=== PATIENT | male | born 1945 | race Caucasian/White ===

== ENCOUNTER 2019-04-06 07:55 | Day surgery (SDC) | payer OTHER, MEDICARE ==
[2019-03-22 10:58] LABS: HEMATOCRIT 40.9 % (37.9-51.0); HEMOGLOBIN 13.9 g/dL (13.5-17.0); MEAN CORPUSCULAR VOLUME 88 fl (80-97); PLATELET COUNT 185 10^3/uL (150-450); RED BLOOD COUNT 4.64 10^6/uL (4.35-5.55); RED CELL DISTRIBUTION WIDTH 14.4 % (11.5-14.0); WHITE BLOOD COUNT 6.3 10^3/uL (4.0-10.5)
--- NOTE | 2019-03-22 12:35 | RADIOLOGY REPORT (SQ) ---
EXAM DESCRIPTION: CHEST PA/LATERAL COMPLETED DATE/TIME: 03/22/2019 10:13 am REASON FOR STUDY: PRE-OP K40.90 UNIL INGUINAL HERNIA, W/O OBST OR GANGR, NOT SPCF COMPARISON: None. NUMBER OF VIEWS: Two view. TECHNIQUE: Frontal and lateral radiographic views of the chest acquired. LIMITATIONS: None. FINDINGS: LUNGS AND PLEURA: No opacities, masses or pneumothorax. No pleural effusion. Attenuated bl ood vessels and flattened papa-diaphragms. MEDIASTINUM AND HILAR STRUCTURES: No masses. No contour abnormalities. HEART AND VASCULAR STRUCTURES: Heart normal in size and contour. No evidence for failure. BONES: No acute findings. HARDWARE: None in the chest. OTHER: No other significant finding. IMPRESSION: Severe COPD. NO ACUTE RADIOGRAPHIC FINDING IN THE CHEST. TECHNICAL DOCUMENTATION: JOB ID: [id number] [employer]- All Rights Reserved Reading location - IP/workstation name: [email or web address]
--- NOTE | 2019-03-22 19:24 | EKG REPORT ---
SEVERITY:- OTHERWISE NORMAL ECG - SINUS RHYTHM LOW VOLTAGE IN FRONTAL LEADS : Confirmed by: Nayana Dawson MD 22-Mar-2019 19:24:08
[~2019-04-06 07:55] MED LIST: ACETAMINOPHEN 325 MG TABLET PO PRN; BUPIVACAINE HCL 0.25% /EPINEPHRINE INJ/PF 30 ML SDV ONE; CEFAZOLIN 1 GM/D5W RTU 1 GM/50 ML RTUPB IV PRN; CLINDAMYCIN 600 MG/D5W RTU 600 MG/50 ML RTUPB IV ONE; CLINDAMYCIN 600 MG/D5W RTU 600 MG/50 ML RTUPB IV PRN; LACTATED RINGERS 1000 ML IV PRN; LIDOCAINE 0.5% INJ-PF (5 MG/ML) 50 ML SDV SUBCUT PRN
[2019-04-06] MEDS ORDERED: ALBUTEROL SULFATE 0.083% NEB 2.5 MG/3 ML AMPUL NEB ONE (08:48)
[2019-04-06] MEDS ORDERED: METOPROLOL SUCCINATE 25 MG TAB.SR.24H PO ONE (08:48)
[2019-04-06] MEDS ORDERED: FENTANYL CITRATE INJ/PF 100 MCG/2 ML AMPUL ONE (10:27)
[2019-04-06] MEDS ORDERED: LIDOCAINE 2% INJ-PF (100 MG/5 ML) SYRINGE ONE (10:27)
[2019-04-06] MEDS ORDERED: MIDAZOLAM 2 MG/2 ML INJ ONE (10:27)
[2019-04-06] MEDS ORDERED: KETAMINE HCL INJ 500 MG/10 ML VIAL ONE (10:27)
[2019-04-06] MEDS ORDERED: ONDANSETRON HCL INJ/PF 4 MG/2 ML SDV ONE (10:27)
[2019-04-06] MEDS ORDERED: PROPOFOL INJ 200 MG/20 ML VIAL IV ONE (10:28)
[2019-04-06] MEDS ORDERED: DIPHENHYDRAMINE HCL 50 MG/ML VIAL IV PRN (11:10)
[2019-04-06] MEDS ORDERED: MEPERIDINE HCL/PF INJ 25 MG/1 ML DISP.SYRIN IV PRN (11:10)
[2019-04-06] MEDS ORDERED: FENTANYL CITRATE INJ/PF 100 MCG/2 ML AMPUL IV PRN ×3 (11:10)
[2019-04-06] MEDS ORDERED: CEFAZOLIN INJ 1 GM VIAL ONE (11:32)
--- NOTE | 2019-04-06 11:55 | Operative Report ---
Nonrecallable Operative Report DATE OF SURGERY: 04/06/19 PREOPERATIVE DIAGNOSIS: left inguinal hernia POSTOPERATIVE DIAGNOSIS: left inguinal hernia OPERATION: left inguinal herniorrophy SURGEON: GRACE BECK ANESTHESIA: LMAC COMPLICATIONS: none ESTIMATED BLOOD LOSS: 10cc INTRAOPERATIVE FINDINGS: large direct defect, ruy repair iwth mesh PROCEDURE: see dictation
--- NOTE | 2019-04-06 11:56 | Discharge Summary ---
Discharge Summary (SDC) - Discharge Final Diagnosis: left inguinal hernia Date of Surgery: 04/06/19 Discharge Date: 04/06/19 Condition: Good Treatment or Instructions: no lifting more than 10lbs for 4 wks. Referrals: [facility] [[facility]] - Discharge Diet: As Tolerated Discharge Activity: Activity As Tolerated, No Lifting Over 10 Pounds, No Lifting/Push/Pulling Report the Following to Your Physician Immediately: Shortness of Breath, Nausea, Vomiting, Increase in Pain, Unusual Bleeding - f/u with me in 2-3 wks.
[2019-04-06 14:06] VITALS: BP 147/95
--- NOTE | 2019-04-08 11:00 | OPERATIVE REPORT E ---
Operative Report NAME: MASON UGARTE JR : 1945 AGE: 73Y DATE OF SURGERY: 04/06/2019 ROOM: PREOPERATIVE DIAGNOSIS: LEFT INGUINAL HERNIA. POSTOPERATIVE DIAGNOSIS: LEFT INGUINAL HERNIA. OPERATION: Left inguinal herniorrhaphy. SURGEON: GRACE BECK M.D. PROCEDURE: Patient brought to the operating room in awake, alert and stable condition and placed on the operating table in supine position and given IV sedation throughout the procedure. The left groin was prepped and draped in the usual sterile fashion. After appropriate timeout, the left groin crease was anesthetized with 1% lidocaine with epinephrine. A curvilinear incision was made in the left groin crease and dissection carried down through subcutaneous tissue with Bovie cautery. Tamara's fascia was opened with Bovie cautery. There was some scarring from previous midline incision but we identified the external oblique which was then opened in line with its fibers. Once we did that, we identified the cord structures fairly rapidly and then spun that with an umbilical tape. There was no indirect inguinal hernia sac noted on the cord structures. However, there was a large direct inguinal hernia sac with a very weak floor. It was mobilized from the pubic symphysis and mobilized proximally and then dropped back into the abdominal cavity. A piece of polypropylene mesh was then utilized for the repair in a fashion. Using Ethibond sutures, the lateral aspect of the mesh was attached to Alexandre's ligament and this was continued to the femoral vein where the femoral vein, mesh, and Alexandre's ligament were all captured with the transition stitch, and then we continued up laterally to Poupart's ligaments. The mesh was then slit to allow for the cord structures and the medial aspect of the mesh was connected to the conjoint tendon with interrupted 0-Ethibond sutures. This created the hernia repair. We were careful not to injure the ilioinguinal or genitofemoral nerve. These were both identified and preserved. The mesh was then dusted with Ancef powder and the external oblique was closed over it with a running 2-0 Vicryl suture. Subcutaneous tissue was closed with interrupted 3-0 Vicryl suture and the skin was closed with intracuticular 4-0 Biosyn and Steri-Strips completed the procedure. The patient was awoken in the operating room and transferred to recovery in stable condition. ESTIMATED BLOOD LOSS: Less than 10 mL. SPONGE AND NEEDLE COUNT: Correct x2. DICTATING PHYSICIAN: GRACE BECK M.D. [id number] PHY#: [id number] ID: [id number] JOB#: [id number] ACCT: [id number] cc:GRACE BECK M.D. >
== END 2019-04-06 14:05 | disposition home or self-care (01) ==
LOC: OROUT 07:55
PROVIDERS: ATTEND Surgery
DX: K40.90 Unilateral inguinal hernia, without obstruction or gangrene, not specified as recurrent (principal); I10 Essential (primary) hypertension; J44.9 Chronic obstructive pulmonary disease, unspecified; E78.00 Pure hypercholesterolemia, unspecified; E55.9 Vitamin D deficiency, unspecified; N40.0 Benign prostatic hyperplasia without lower urinary tract symptoms; Z88.0 Allergy status to penicillin; Z01.818 Encounter for other preprocedural examination; F17.210 Nicotine dependence, cigarettes, uncomplicated
CPT/HCPCS: 93005; 36415; 85027; 71046; 93010; 49505; C1781; J2250; J3490 ×2; J0690; J3010; J2001; J2405; J2704; 830

== ENCOUNTER → 2019-10-26 | Outpatient (CLI) | payer OTHER ==
--- NOTE | 2019-11-08 10:14 | RADIOLOGY REPORT (SQ) ---
EXAM DESCRIPTION: CT CHEST WITH COMPLETED DATE/TIME: 10/26/2019 10:01 am REASON FOR STUDY: LUNG NODULE (R93.89) R93.89 ABNORMAL FINDINGS ON DX IMAGING OF OTH BODY STRUCTURE COMPARISON: None. TECHNIQUE: CT scan of the chest performed using helical scanning technique with dynamic intravenous contrast injection. Images reviewed with lung, soft tissue and bone windows. Reconstructed coronal and sagittal MPR and MIP images reviewed. All images stored on PACS. All CT scanners at this facility use dose modulation, iterative reconstruction, and/or weight based d osing when appropriate to reduce radiation dose to as low as reasonably achievable (ALARA). [facility]: Dose Right [facility]: CareDose [facility]: Dose Right [facility]: Teradose 4D [facility]: VideoLens CONTRAST TYPE AND DOSE: Contrast/concentration: Isovue 350.00 mg/ml; Total Contrast Delivered: 80.0 ml; Total Saline Delivered: 55.0 ml RENAL FUNCTION: Creatinine 1.1 milligrams/deciliter RADIATION DOSE: CT Rad equipment meets quality standard of care and radiation dose reduction techniq ues were employed. CTDIvol: 3.0 mGy. DLP: 127 mGy-cm. . LIMITATIONS: None. FINDINGS: LUNGS AND PLEURA: There is advanced upper lobe predominant centrilobular emphysema associa katarina with mild bronchial wall thickening and bronchiectasis. The saber sheath configuration of the tr achea is consistent with COPD. The curvilinear opacities in the lower lobes that extend to the pleur al surface could represent parenchymal bands. There is no consolidation, ground-glass opacification, pleural effusion, pleural thickening, or greater than 6 mm pulmonary nodule or mass. HILAR AND MEDIASTINAL STRUCTURES: No adenopathy or mass. HEART AND VASCULAR STRUCTURES: There is a standard 3 vessel arch. There are also eccentric calcified and noncalcified atheromatous plaques throughout the aortic arch and descending thoracic aorta ; ther e is no thoracic aortic aneurysm or dissection. The abdominal aorta is aneurysmal with concentric no ncalcified atheromatous plaques and it measures 4.5 x 4.2 cm. HARDWARE: None in the chest. UPPER ABDOMEN: The left kidney is atrophic. There is an indeterminate 2.3 x 2.1 cm exophytic lesion that arises from the lateral cortex of the left kidney. THYROID AND OTHER SOFT TISSUES: The thyroid gland is enlarged and heterogeneous. There is no adenopa thy BONES: There are age-indeterminate compression deformities of the T4 and T11 vertebral bodies associa katarina with less than 25% loss of the vertebral body heights ; there is no retropulsion. OTHER: No other finding. IMPRESSION: 1. Advanced upper lobe predominant centrilobular emphysema without a superimposed acute cardiopulmonary process. 2. Enlarged and heterogeneous thyroid gland consistent with goiter. 3. Age-indeterminate compression deformities of the T4 and T11 vertebral bodies associated with the less than 25% loss of the vertebral body heights. 4. Asymmetric atrophy of the left kidney. COMMENT: The report could be addended once outside studies are available for comparison. TECHNICAL DOCUMENTATION: JOB ID: [id number] Quality ID # [id number]: Final reports with documentation of one or more dose reduction techniques (e.g., Au tomated exposure control, adjustment of the mA and/or kV according to patient size, use of iterative reconstruction technique) 2010 [employer]- All Rights Reserved Reading location - IP/workstation name: [email or web address]
== END ==
LOC: RAD 09:30
PROVIDERS: ATTEND Internal Medicine Hematology & Oncology
DX: R91.1 Solitary pulmonary nodule (principal); J43.2 Centrilobular emphysema; E04.9 Nontoxic goiter, unspecified
CPT/HCPCS: 71260; 82565

== ENCOUNTER 2020-06-12 06:40 | Day surgery (SDC) | payer OTHER ==
[2020-06-12] MEDS ORDERED: PROPOFOL INJ 200 MG/20 ML VIAL IV ONE (07:34)
--- NOTE | 2020-06-12 08:35 | Operative Report ---
Operative Report DATE OF SURGERY: 06/12/20 Operative Report: The risk, benefits and alternatives of the procedure including the risk of bleeding, perforation requiring surgery have been explained to the patient in detail and informed consent has been obtained. Patient is placed in a left, lateral decubital position. Timeout was called. Propofol medication is administered. PREOPERATIVE DIAGNOSIS: Weight loss. Previous gastric lesion needing follow-up. Colorectal cancer screening POSTOPERATIVE DIAGNOSIS: Colon polyp sessile status post snare polypectomy and retrieved. Diverticulosis. Gastritis status post biopsy. Duodenitis. Hiatal hernia OPERATION: Colonoscopy with snare polypectomy. Colonoscopy with biopsy. EGD with biopsy SURGEON: SADIQ RENEE ANESTHESIA: LMAC TISSUE REMOVED OR ALTERED: As noted above. COMPLICATIONS: None. ESTIMATED BLOOD LOSS: None. INTRAOPERATIVE FINDINGS: As noted above. PROCEDURE: Patient tolerated the procedure well. No immediate postprocedure complications are noted. Patient is discharged in good condition. Discharge date 06/12/2020. Discharge diet: Regular. Discharge activity: Regular. 2 to 3-week follow-up to discuss findings. Patient is instructed to call the office or proceed to the emergency room should there be any further problems or questions. Wait on the pathology. 5-year surveillance colonoscopy
[2020-06-12 09:14] VITALS: BP 115/68
== END 2020-06-12 09:30 | disposition home or self-care (01) ==
LOC: END 06:40
PROVIDERS: ATTEND Internal Medicine Gastroenterology
DX: K31.9 Disease of stomach and duodenum, unspecified (principal); K57.30 Diverticulosis of large intestine without perforation or abscess without bleeding; K29.80 Duodenitis without bleeding; K44.9 Diaphragmatic hernia without obstruction or gangrene; D12.3 Benign neoplasm of transverse colon; Z03.818 Encounter for observation for suspected exposure to other biological agents ruled out; Z87.891 Personal history of nicotine dependence; Z79.899 Other long term (current) drug therapy; Z88.0 Allergy status to penicillin; J44.9 Chronic obstructive pulmonary disease, unspecified; I10 Essential (primary) hypertension
CPT/HCPCS: 43239; 45380; 45385; 87635; 88342 ×2; 88305 ×2; J2704; C9803; 813